=== PATIENT | female | born 1970 | race Caucasian/White ===

== ENCOUNTER 2024-03-23 04:30 | Day surgery (SDC) | payer OTHER ==
[2024-03-22 11:46] VITALS: BMI 31.8
[2024-03-23 12:14] VITALS: RESP 18
[2024-03-23] MEDS ORDERED: FENTANYL CITRATE/PF 50 MCG/ML VIAL ONE ×4 (13:17→14:53)
[2024-03-23] MEDS: ceFAZolin SODIUM 1 GM VIAL IVPB ONE (13:38)
[2024-03-23] MEDS ORDERED: ONDANSETRON 4 MG/2 ML VIAL IVPUSH PRN (14:25)
[2024-03-23] MEDS ORDERED: LACTATED RINGERS SOLUTION 1,000 ML IV SCH (14:30)
[2024-03-23] MEDS: ACETAMINOPHEN 1000 MG/100 ML BAG IVPB ONE (14:45)
[2024-03-23] MEDS: ACETAMINOPHEN INJECTION 100 ML IVPB ONE (14:45)
[2024-03-23] MEDS ORDERED: IBUPROFEN 800 MG/8 ML IJ IVPB PRN (15:54)
[2024-03-23] MEDS ORDERED: IBUPROFEN 600 MG TABLET (FP) PO PRN (15:54)
[2024-03-23] MEDS ORDERED: ACETAMINOPHEN 325 MG TABLET (FP) PO PRN (15:54)
[2024-03-23 15:59] VITALS: TEMP 97.8
[2024-03-23 17:39] VITALS: BP 118/70; PULSE 70
[2024-03-24] MEDS ORDERED: oxyCODONE HCL 5 MG TABLET PO PRN ×2 (03:56)
== END 2024-03-23 17:10 | disposition home or self-care (01) ==
LOC: JASU-SURG 04:30
PROVIDERS: ATTEND Obstetrics & Gynecology
PROC: 0U5B8ZZ Destruction of Endometrium, Via Natural or Artificial Opening Endoscopic (ICD-10-PCS; principal; 2024-03-23 13:30)
DX: N92.0 Excessive and frequent menstruation with regular cycle (principal); N84.0 Polyp of corpus uteri
CPT/HCPCS: 81025; 86850; 86900; 86901; 88305-TC; 94760; J0131